=== PATIENT | male | born 1980 | race Caucasian/White ===

== ENCOUNTER 2022-05-19 14:24 | Outpatient (CLI) | payer BC, SELFPAY ==
[2022-05-19 11:48] LABS: Albumin* 4.4 g/dL (3.3-5.0); Chloride* 104 mmol/L (96-114); Sodium* 140 mmol/L (135-149)
[2022-05-19 11:49] LABS: Potassium* 4.3 mmol/L (3.6-5.1)
[2022-05-19 11:50] LABS: Cholesterol* 148 mg/dL (90-199)
[2022-05-19 11:51] LABS: Alkaline Phosphatase* 41 U/L (40-150); Aspartate Amino Transferase* 37 U/L (12-35); Bilirubin Total* 1.2 mg/dL (0.1-1.5); Blood Urea Nitrogen* 14 mg/dL (5-24); Carbon Dioxide* 32 mmol/L (20-32); Creatinine* 1.1 mg/dL (0.5-1.5); Estimated Glomerular Filt Rate 86 ml/min; Glucose* 93 mg/dL (60-115); Total Protein* 6.8 g/dL (6.0-8.3); Triglycerides* 120 mg/dL (40-149)
[2022-05-19 11:52] LABS: Alanine Aminotransferase* 58 U/L (4-50); Calcium* 9.3 mg/dL (8.4-10.6); HDL Cholesterol* 60 mg/dL (>=40); LDL Cholesterol Calculated 64 mg/dL (<100)
== END 2022-05-19 14:25 | disposition home or self-care (01) ==
PROVIDERS: PCP Emergency Medicine; Visit Provider Emergency Medicine
DX: Z00.00 Encounter for general adult medical examination without abnormal findings (principal); E78.5 Hyperlipidemia, unspecified
CPT/HCPCS: 80053; 80061

== ENCOUNTER 2023-09-02 07:57 | Outpatient (CLI) | payer OTHER, SELFPAY | END 2023-09-02 07:58 | disposition home or self-care (01) | LOC: NFLDREF 09-15 10:00 | PROVIDERS: PCP Emergency Medicine; Referring Provider Emergency Medicine; Visit Provider Emergency Medicine | DX: R74.01 Elevation of levels of liver transaminase levels (principal); E78.2 Mixed hyperlipidemia | CPT/HCPCS: 80053; 80061 ==

== ENCOUNTER 2023-09-22 08:45 | Outpatient (CLI) | payer OTHER, SELFPAY | END 2023-09-22 08:46 | disposition home or self-care (01) | PROVIDERS: PCP Emergency Medicine; Visit Provider Emergency Medicine | DX: R53.83 Other fatigue (principal) | CPT/HCPCS: 84270; 84402; 84403; 84443 ==

== ENCOUNTER 2024-12-08 08:23 | Outpatient (CLI) | payer OTHER, SELFPAY | END 2024-12-08 08:24 | disposition home or self-care (01) | PROVIDERS: PCP Family Medicine; Visit Provider Family Medicine | DX: E78.5 Hyperlipidemia, unspecified (principal); R74.01 Elevation of levels of liver transaminase levels; Z13.1 Encounter for screening for diabetes mellitus | CPT/HCPCS: 80048; 80061 ==

== ENCOUNTER 2024-12-18 14:39 | Outpatient (CLI) | payer OTHER, SELFPAY | END 2024-12-18 14:40 | disposition home or self-care (01) | LOC: NFLDREF 12-21 07:49 | PROVIDERS: PCP Family Medicine; Referring Provider Family Medicine; Visit Provider Family Medicine | DX: J02.9 Acute pharyngitis, unspecified (principal); R51.9 Headache, unspecified | CPT/HCPCS: 86663 ==